=== PATIENT | male | born 1990 | race Caucasian/White ===

== ENCOUNTER → 2016-12-26 | Outpatient (CLI) | payer BC ==
[~2016-12-26] MED LIST: BENADRYL ALLERG25 MG PO; MEDROL DOSPAK21 TAB PO; NAPROSYN250 MG PO; PEPCID AC20 M1 PO
== END ==
LOC: ULTRA 07:54
DX: R10.9 Unspecified abdominal pain (principal); R10.30 Lower abdominal pain, unspecified